=== PATIENT | male | born 1965 | race Caucasian/White ===

== ENCOUNTER → 2017-03-15 | Day surgery (SDC) | payer BC ==
[2017-03-10 13:50] VITALS: Ht 172.7 cm; Wt 84.0 kg
[~2017-03-15] VITALS: Ht 172.7 cm; Wt 84.0 kg
[~2017-03-15] MED LIST: LEVO150T9 PO; LIDOCAINE HCL 2% 2 ML VIAL (20MG/ML) ONE; PROPOFOL IV EMULSION 10 MG/ML 20 ML VIAL IV ONE; SODIUM CHLORIDE 0.9% 500ML 500 ML IV ONE
--- NOTE | 2017-03-15 14:50 | Endo History and Physical ---
History & Physical Date of Service: March 15, 2017. Chief Complaint: Screening Referring Physician: Dr Iverson History of Present Illness 51 yo male who presents for screening colonoscopy. Past Surgical History Hx Cardiac Surgery: No Hx Internal Defibrillator: No Hx Pacemaker: No Hx Abdominal Surgery: No Hx of Implantable Prosthesis: No Hx Post-Op Nausea and Vomiting: No Hx Cancer Surgery: Yes (TOTAL THYROIDECTOMY) Hx Thoracic Surgery: No Hx Orthopedic: No Hx Urinary Tract Surgery: No Family History None Social History Smoking Status: Never Smoker Hx Substance Use: No Hx Alcohol Use: No Allergies Coded Allergies: NO KNOWN DRUG ALLERGIES (Verified Allergy, Unknown, ., 03/10/17) Current Medications Reported Home Medications Medications Dose Route/Sig Max Daily Dose Days Date Category Levothyroxine Sodium 150 Mcg Tab 1 Tab PO QAM 90 03/10/17 Reported Vital Signs Weight (Kilograms): 84 Height (Feet): 0 Height (Inches): 68 Date Time Temp Pulse Resp B/P Pulse Ox O2 Delivery O2 Flow Rate FiO2 03/15/17 14:22 37 80 20 147/87 96 Room Air Physical Exam General Appearance: WD/WN, no apparent distress Respiratory/Chest: Auscultation: breath sounds normal Cardiovascular: Heart Auscultation: RRR Abdomen: Bowel Sounds: normal Inspection & Palpation: soft, non-distended, no tenderness, guarding & rebound Assessment and Plan Assessment: 51 yo male who presents for screening colonoscopy. Plan: Proceed with colonoscopy.
--- NOTE | 2017-03-15 15:16 | Discharge Instructions ---
Endoscopy Patient Instructions Date / Procedure(s) Performed March 15, 2017. Colonoscopy Allergy Information Coded Allergies: NO KNOWN DRUG ALLERGIES (Verified Allergy, Unknown, ., 03/15/17) Discharge Date / Findings March 15, 2017. Internal hemorrhoids Medication Instructions OK to resume all medications today as prescribed Reported Home Medications Medications Dose Route/Sig Max Daily Dose Days Date Category Levothyroxine Sodium 150 Mcg Tab 1 Tab PO QAM 90 03/10/17 Reported Provider Instructions Activity Restrictions - No exercising or heavy lifting for 24 hours. - Do not drink alcohol the day of the procedure. - Do not drive a car or operate machinery until the day after the procedure. - Do not make any important decisions or sign important papers in 24 hours after the procedure. Following Day: - Return to full activity which may include returning to work/school. Diet Start your diet with liquids and light foods (jello, soup, juice, toast). Then eat your usual diet if not nauseated. Treatment For Common After Affects For mild abdominal pain, bloating, or excessive gas: - Rest - Eat lightly - Lie on right side Follow-Up Information Follow-up with Dr Iverson as scheduled Anesthesia Information What You Should Know You have had a procedure that required some medicine to reduce anxiety and discomfort. This treatment is called moderate sedation. After receiving the treatment, you may be sleepy, but you will be able to breathe on your own. The effects of the treatment may last for several hours. Follow these instructions along with Activity/Diet recommendations noted above: * Do NOT do anything where dizziness or clumsiness would be dangerous. * Rest quietly at home today, then you can be up and about tomorrow. * Have a responsible person stay with you the rest of today. * You may have had an I.V. today. If so, you may take the dressing off later today. Recommendations Call your doctor if: * Trouble breathing * Continuous vomiting for more than 24 hours * Temperature above 101 degrees * Severe abdominal pain or bloating * Pain not relieved by pain medicine ordered * There is increased drainage or redness from any incision * A large amount of rectal bleeding greater than 2-3 tablespoons. (If you had a polyp/s removed or have hemorrhoids, a small amount of blood - from the rectum is to be expected.) * You have any unanswered questions or concerns. IN THE EVENT OF A SERIOUS EMERGENCY, GO TO THE NEAREST EMERGENCY ROOM Your discharge instructions were prepared by provider Royce Ortiz. Patient Instructions Signature Page [place]ised[place] Patient (or Guardian) Signature/Date: I have read and understand the instructions given to me by my caregivers. Caregiver/RN/Doctor Signature/Date: The above-named patient and/or guardian has received patient instructions on this date. + Original Patient Signature Page (only) stays with chart. Please make copy for patient.
--- NOTE | 2017-03-15 15:21 | GI REPORT ---
Procedure Date: 03/15/2017 2:56 PM Procedure: Colonoscopy Indications: Screening for colorectal malignant neoplasm Medicines: Monitored Anesthesia Care Complications: No immediate complications. Estimated Blood Loss: Estimated blood loss: none. Procedure: Pre-Anesthesia Assessment: - Prior to the procedure, a History and Physical was performed, and patient medications and allergies were reviewed. The patient's tolerance of previous anesthesia was also reviewed. The risks and benefits of the procedure and the sedation options and risks were discussed with the patient. All questions were answered, and informed consent was obtained. Prior Anticoagulants: The patient has taken no previous anticoagulant or antiplatelet agents. ASA Grade Assessment: II - A patient with mild systemic disease. After reviewing the risks and benefits, the patient was deemed in satisfactory condition to undergo the procedure. After I obtained informed consent, the scope was passed under direct vision. Throughout the procedure, the patient's blood pressure, pulse, and oxygen saturations were monitored continuously. The scope was introduced through the anus and advanced to the terminal ileum. The colonoscopy was performed without difficulty. The patient tolerated the procedure well. The quality of the bowel preparation was good. The terminal ileum, ileocecal valve, appendiceal orifice, and rectum were photographed. Findings: Non-bleeding internal hemorrhoids were found during retroflexion. The hemorrhoids were small. The exam was otherwise without abnormality. Impression: - Non-bleeding internal hemorrhoids. - The examination was otherwise normal. - No specimens collected. Recommendation: - Resume previous diet. - Continue present medications. - Repeat colonoscopy in 10 years for surveillance. - Return to primary care physician as previously scheduled. Royce Ortiz DO 03/15/2017 3:20:19 PM This report has been signed electronically. Note Initiated On: 03/15/2017 2:56 PM I attest to the content of the Intraoperative Record and orders documented therein, exceptions below
[2017-03-15 15:42] VITALS: BP 124/86; PULSE 78; O2SAT 95
--- NOTE | 2017-03-15 15:44 | Anesthesiology Progress Note ---
Anesthesia Post Op Note Date & Time March 15, 2017 at 15:43 Vital Signs Pain Intensity: 0 Vital Signs Past 12 Hours Date Time Temp Pulse Resp B/P Pulse Ox O2 Delivery O2 Flow Rate FiO2 03/15/17 15:42 78 20 124/86 95 Room Air 03/15/17 15:28 75 16 108/85 93 Room Air 03/15/17 15:13 65 16 112/62 96 Room Air 03/15/17 14:22 37 80 20 147/87 96 Room Air Notes Mental Status: alert / awake / arousable, participated in evaluation Pt Amnestic to Procedure: Yes Nausea / Vomiting: adequately controlled Pain: adequately controlled Airway Patency, RR, SpO2: stable & adequate BP & HR: stable & adequate Hydration State: stable & adequate Anesthetic Complications: no major complications apparent
== END | disposition home or self-care (01) ==
LOC: C.GI 12:52
PROVIDERS: ATTEND Internal Medicine
DX: Z12.11 Encounter for screening for malignant neoplasm of colon (principal); K64.8 Other hemorrhoids; Z79.899 Other long term (current) drug therapy

== ENCOUNTER → 2017-06-18 | Outpatient (CLI) | payer BC ==
[~2017-06-18] MED LIST changes: -LIDOCAINE HCL 2% 2 ML VIAL (20MG/ML) ONE; -PROPOFOL IV EMULSION 10 MG/ML 20 ML VIAL IV ONE; -SODIUM CHLORIDE 0.9% 500ML 500 ML IV ONE
[2017-06-21 12:59] LABS: QUANTIF TB AG-NIL 0.02 IU/ML; QUANTIFERON NIL 0.07 IU/ML
== END | disposition home or self-care (01) ==
LOC: C.LAB 10:39
PROVIDERS: ATTEND Student in an Organized Health Care Education/Training Program
DX: Z20.1 Contact with and (suspected) exposure to tuberculosis (principal)

== ENCOUNTER → 2017-08-11 | Outpatient (CLI) | payer BC ==
--- NOTE | 2017-08-11 13:35 | DIAGNOSTIC IMAGING REPORT ---
CHEST 2 VIEWS ROUTINE CLINICAL HISTORY: Z20.1 Tuberculosis [id number] COMPARISON STUDY: No previous studies for comparison. FINDINGS: The cardiac and mediastinal contours are normal. There is no evidence of focal pulmonary consolidation. There is no evidence of failure. No pleural effusions are visualized.[ No calcified granulomata are visualized. There is no conventional radiographic evidence of adenopathy. IMPRESSION: No active disease in the chest. Electronically signed by: Latrell Nieves M.D. 08/11/2017 1:33 PM Dictated Date/Time: 08/11/2017 1:33 PM
== END | disposition home or self-care (01) ==
LOC: C.RAD 12:59
PROVIDERS: ATTEND Internal Medicine
DX: Z20.1 Contact with and (suspected) exposure to tuberculosis (principal)

== ENCOUNTER → 2017-09-13 | Outpatient (CLI) | payer BC ==
[2017-09-13 16:28] LABS: BLOOD UREA NITROGEN 23 mg/dl (7-18); BUN/CREATININE RATIO 24.4 (10-20); CALCIUM 8.8 mg/dl (8.5-10.1); CARBON DIOXIDE 23 mmol/L (21-32); CHLORIDE 109 mmol/L (98-107); CREATININE 0.95 mg/dl (0.60-1.40); GLUCOSE 94 mg/dl (70-99); MAGNESIUM 2.1 mg/dl (1.8-2.4); POTASSIUM 3.9 mmol/L (3.5-5.1); SODIUM 140 mmol/L (136-145)
[2017-09-13 16:32] LABS: HEMATOCRIT 40.1 % (42-52); MEAN CELL VOLUME 91.1 fL (80-100); MEAN CORPUSCULAR HEMOGLOBIN 31.1 pg (25-34); MEAN CORPUSCULAR HGB CONC 34.2 g/dl (32-36); MEAN PLATELET VOLUME 10.4 fL (7.4-10.4); PLATELET COUNT 190 K/uL (130-400); WHITE BLOOD COUNT 6.13 K/uL (4.8-10.8)
== END | disposition home or self-care (01) ==
LOC: C.LAB1850 14:59
PROVIDERS: ATTEND Internal Medicine
DX: R51 Headache (principal)

== ENCOUNTER → 2017-09-20 | Outpatient (CLI) | payer BC ==
--- NOTE | 2017-09-20 12:46 | DIAGNOSTIC IMAGING REPORT ---
CHEST 2 VIEWS ROUTINE HISTORY: TUBERCULOSIS EXPOSURE COMPARISON: None. FINDINGS: Increased markings at the lung bases likely due to vascular crowding or atelectasis from the low lung volumes. The lungs are otherwise clear. The heart is normal in size. No pleural effusions. No pneumothorax. IMPRESSION: No acute process. Bibasilar densities favor atelectasis or vascular crowding from the low lung volumes. Electronically signed by: Tyler Swain M.D. 09/20/2017 12:45 PM Dictated Date/Time: 09/20/2017 12:42 PM
== END | disposition home or self-care (01) ==
LOC: C.RAD1850 12:24
PROVIDERS: ATTEND Internal Medicine
DX: Z20.1 Contact with and (suspected) exposure to tuberculosis (principal); R91.8 Other nonspecific abnormal finding of lung field

== ENCOUNTER → 2017-10-06 | Outpatient (CLI) | payer BC | END | disposition home or self-care (01) | LOC: C.LAB 12:13 | PROVIDERS: ATTEND Internal Medicine | DX: Z12.5 Encounter for screening for malignant neoplasm of prostate (principal); R05 Cough ==